=== PATIENT | male | born 2000 | race American Indian/Alaskan Native ===

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

== ENCOUNTER 2021-05-31 14:59 | Outpatient (CLI) | payer BC, SELFPAY | END 2021-05-31 23:59 | disposition short-term general hospital (02) | LOC: IMMUN 06-06 15:00 | PROVIDERS: Visit Provider Family Medicine | DX: Z23 Encounter for immunization (principal) ==

== ENCOUNTER 2022-01-23 13:28 | Emergency (ER) | payer BC, SELFPAY ==
[2022-01-23 13:32] VITALS: BP 116/70; PULSE 66; RESP 15; TEMP 36.2; O2SAT 98; BMI 24.2
--- NOTE | 2022-01-23 15:35 | EDS_ITS ---
HPI History of Present Illness HPI Narrative: Abrasion right lower leg Chief Complaint: Bite Informant: patient Onset/Context/Timing Onset: Today Timing: Continuous Narrative Narrative: 22-year-old male from the [facility]. Went to bed last night when he woke up this morning there is a very small 1 cm abrasion on his right lower leg. There was no bat in his room but he is concerned that this may have been from a bat bite. Again there was no witness of any bite in the room at all. Prior similar symptoms: No Recent Illness/Hospitalization: No ROS ROS ED ROS Narrative Denies recent illness. Review of Systems ROS Unobtainable: Denies due to encephalopathy or other Constitutional Constitutional ED: Denies chills Eyes Eyes: Denies blurry vision ENT ENT ED: Denies ear pain Cardiovascular Cardiovascular: Denies chest pain Respiratory/Chest Respiratory/Chest: Denies cough or dyspnea Gastrointestinal Gastrointestinal: Denies abdominal pain or constipation Genitourinary Genitourinary ED: Denies dysuria or hematuria Musculoskeletal Musculoskeletal: Denies arthralgias Integumentary Denies abscess Neurologic Neurologic: Denies headache(s) Psychiatric Psychiatric: Denies anxiety Endocrine Endocrinology: Denies polydipsia Hematologic/Lymphatic Hematologic/Lymphatic: Denies easy bleeding Allergic/Immunologic Allergic/Immunologic ED: Denies mouth swelling PFSH PFSH Medical History no medical history no medical history Home Medications NK 01/23/22 [History Last Taken Unknown] Allergy/AdvReac Type Severity Reaction Status Date / Time morphine Allergy Vomiting Verified 01/23/22 13:29 EXAM Physical Exam Narrative Exam Narrative: Well-appearing 21-year-old male. Vital signs stable afebrile. HEENT exam normal. Lungs are clear. Heart regular rhythm. Abdomen soft nontender. Moving all 4 extremities. Right lower leg just below his knee near his tibial tuberosity was a small abrasion a centimeter in length. Does not look like a bite. There is no signs of infection. No bleeding. No swelling. No drainage. No redness. Neurologic exam normal. Const Vital Signs: 01/23/22 13:32 Temperature 97.1 F L Temperature Source Oral Pulse Rate 66 Respiratory Rate 15 Blood Pressure 116/70 Blood Pressure Mean 85 Pulse Ox 98 Oxygen Delivery Method Room Air Positive well nourished and well developed; Negative for obese, cachectic, contractures or unkempt General Appearance ED: well developed and NAD; Negative for unkempt, cachectic or contractures Nutritional Appearance: Negative for cachectic or obese HEENT Reports moist mucous membranes normocephalic and atraumatic; Negative for trauma or tenderness Eyes PERRL and EOMs intact bilaterally General Eye ED: Negative for other Neck full ROM and no lymphadenopathy General: Negative for tenderness Resp normal respiratory effort and clear to auscultation bilaterally Effort and Inspection: Negative for other Auscultation: Negative for rales, rhonchi or wheezes Cardio regular rate, regular rhythm, S1 normal heart sound, S2 normal heart sound and no murmurs Jugular Venous Distention: Negative for other Rate: Negative for bradycardia Rhythm: Negative for abnormal rhythm GI non-tender, non-distended and no masses Inspection: Negative for abdominal distention Auscultation: normoactive bowel sounds Palpation: soft; Negative for tender no CVA tenderness Bladder / Kidney Exam: No CVA tenderness Back/Spine no CVA tenderness General Back: Negative for CVA tenderness Cervical Spine: Negative for cervical spine tenderness Thoracic Spine / Upper Back: Negative for thoracic spinal tenderness Lumbar Spine / Lower Back: Negative for lumbar spinal tenderness Extremity normal to inspection and full ROM Extremity Narrative: Small abrasion right lower leg. No signs of infection. No signs of bite. General Extremety ED: Negative for deformity or edema General Extremity: Negative for deformity or edema Neuro oriented x3 and CN's II-XII intact bilaterally Sensorium / Orientation: alert, oriented to person, oriented to place and oriented to time; Negative for orientation impaired or confused Motor Exam: strength 5/5 throughout Psych mental status grossly normal and thought process normal Appearance: Negative for unkempt Attitude: No agitated Mood & Affect: Negative for anxious Skin skin turgor normal General Skin Exam: Negative for other Lesions: no lesions Rashes: no rashes Trauma: abrasion MDM MDM MDM Narrative Medical decision making narrative: 21-year-old with abrasion right lower leg. Clinically does not look like any type of insect or bat bite. I do not think he qualifies for rabies vaccinations for this. There was no bat witnessed in his room. Discharge Plan Triage Chief Complaint: Bite ED Provider: Korey Larsen Dx/Rx/DC Orders Clinical Impression: Abrasion of lower leg Instructions: ED Abrasion Prescriptions: No Action NK Primary Care Provider: Care Physician,No Primary Referrals: Giovanni Julian MD [Med Staff - Customer Service Driver] - As Needed Care Physician,No Primary [Primary Care Provider] - Activity Restrictions/Additional Instructions: Keep area clean. Clean daily with soap and water peroxide and water. Disposition Disposition: Home, Self Care
== END 2022-01-23 15:52 | disposition home or self-care (01) ==
PROVIDERS: Emergency Provider Emergency Medicine; Visit Provider Emergency Medicine
DX: S80.811A Abrasion, right lower leg, initial encounter (principal); X58.XXXA Exposure to other specified factors, initial encounter
CPT/HCPCS: 99282